=== PATIENT | male | born 1940 | race Caucasian/White ===

== ENCOUNTER → 2018-03-29 11:00 | Outpatient (CLI) | payer MEDICARE, OTHER, SELFPAY | PROVIDERS: Family Provider Family Medicine; PCP Family Medicine | DX: Z23 Encounter for immunization (principal) | CPT/HCPCS: 90471; 90662 ==

== ENCOUNTER → 2019-03-21 12:03 | Outpatient (CLI) | payer MEDICARE, OTHER, SELFPAY | PROVIDERS: PCP Family Medicine | DX: Z23 Encounter for immunization (principal) | CPT/HCPCS: 90471; 90662 ==

== ENCOUNTER → 2020-04-09 01:54 | Outpatient (CLI) | payer MEDICARE, OTHER, SELFPAY | PROVIDERS: PCP Family Medicine; Referring Provider Internal Medicine; Visit Provider Internal Medicine | DX: Z23 Encounter for immunization (principal) | CPT/HCPCS: 90471; 90662 ==

== ENCOUNTER → 2020-04-19 08:26 | Outpatient (CLI) | payer MEDICARE, OTHER, SELFPAY ==
[2020-04-20 01:36] LABS: COVID19 Sendout Not Detected (Not Detect)
== END ==
PROVIDERS: PCP Family Medicine; Visit Provider Physician Assistant
DX: Z11.59 Encounter for screening for other viral diseases (principal)
CPT/HCPCS: 87635

== ENCOUNTER 2020-04-22 11:47 | Day surgery (SDC) | payer MEDICARE, OTHER, SELFPAY ==
[2020-04-22] VITALS (9 sets, daily range): BP systolic 105–164; BP diastolic 70–88; PULSE 69–99; RESP 10–24; TEMP 36.7–37; O2SAT 94–100; BMI 26.4
--- NOTE | 2020-04-22 12:01 | PM.HP.1 ---
History of Present Illness History of Present Illness Chief complaint: [facility] [place] Narrative: 80 year old male comes in today for consideration of a screening colonoscopy. He has lost approximately 15 lb in the last 12 months, unintentional. No night sweats or fevers. Reports that his appetite is normal. He has had approximately 3 lifetime colonoscopies, last colonoscopy was clear, previous history of polyps. There have been no lower GI symptoms suggesting disease such as change in bowel habits, bleeding, abdominal pain or anemia. There's been no family history of colon cancer or colon polyps. Overall health issues have been stable, including no major cardiac events for at least 6 weeks. PCP: Dr. Mckinney Past medical history: Hyperlipidemia Lumbar disc disease, L4-L5 Spinal stenosis Elevated PSA Recurrent epistaxis Weight loss Past surgical history: None Family history: Noncontributory Social History: Alcohol drinks/day: 2 a week >5/day in last 3 mos: no Caffeine use/day: 2 Type of Exercise: walk Exercise Times per Week: daily Guns in home: no Dental Care w/in 6 mos.: no Sun Exposure: occasionally Seat Belt Use: yes Smoking Status: former smoker Year quit smokin Drug Use: never Meds Home Medications and Allergies Home Medications Medication Instructions Recorded Confirmed Type CHOLECALCIFEROL (VITAMIN D3) 400 iu PO Q DAY #0 10/22/11 04/22/20 History (Vitamin D3) FOLIC ACID/VIT A/VIT B1/VIT 1 tab PO Q DAY #0 10/22/11 04/22/20 History (#MULTI VITAMIN W/BETA CAROTENE) Fish Oil (#FISH OIL) 1 iu PO Q DAY #0 10/22/11 04/22/20 History Allergies Allergy/AdvReac Type Severity Reaction Status Date / Time No Known Drug Allergies Allergy Verified 04/22/20 12:10 Review of Systems Review of Systems ROS: Yes All systems reviewed with the patient and are negative except as otherwise documented Exam Narrative Exam Narrative: GENERAL: Alert and oriented, appearing stated age and in no acute distress. HEENT: Head normocephalic/atraumatic. Pupils equal, round, and reactive to light and accomodation. Extraocular muscles intact. Tympanic membranes clear. Nasal mucosa moist, septum midline. Oral mucosa moist, no lesions. Neck soft and supple, no lymphadenopathy. LUNGS: Clear to ausculation bilaterally, no wheezes, rhonchi or rales. CV: Normal S1 and S2 with regular rate and rhythm, no audible murmurs, rubs or gallops. ABDOMEN: Soft, non-tender, non-distended, no organomegaly. Positive bowel sounds. EXTREMITIES: No clubbing, cyanosis, or edema. NEURO: Cranial nerves II through XII grossly intact, no focal deficits. PSYCH: Alert and oriented x 3. SKIN: No concerning lesions. Assessment & Plan Assessment & Plan narrative: 1. Unintentional weight loss 2. History of colon polyps 3. Screening for colon cancer Plan for colonoscopy. The nature and character of the procedure as well as anticipated results were discussed. The possibility of not completing the procedure was also discussed. Possible complications including aspiration pneumonia, bleeding, perforation and reaction to medications either for sedation or preparation and missed lesions were discussed. Questions were answered and proceeding to the colonoscopy was elected. Informed consent signed. I sincerely appreciate the referral allowing me to participate in this patient's care. Please contact me with any questions or concerns.
--- NOTE | 2020-04-22 12:09 | PM.OP.ENDO ---
Operative Date/Time/Diagnoses Date of procedure: 04/22/20 Procedure Notes SCOAP/Timeout: 1:07 p.m. Procedure in detail: ENDOSCOPIST: Etelvina Figueredo MD Sedation RN: Tori Coombs RN Sedation start time: 1:08 p.m. Sedation end time: 1:26 p.m. PROCEDURE: Colonoscopy INDICATIONS: 1. Unintentional weight loss 2. History of colon polyps 3. Screening for colon cancer MEDICATION: Levsin 0.125 mg sublingual, incremental doses of Versed and fentanyl until appropriate level sedation achieved. ASA CLASS: 2 CECAL WITHDRAWAL TIME: 8 minutes COMPLICATIONS: None. EXTENT OF PROCEDURE: Cecum. QUALITY OF PREP: Good with portions of liquid stool. PROCEDURE: Prior to insertion of the colonoscope, a digital rectal examination was accomplished with circumferential palpation of the distal rectal mucosa without significant findings being noted. The high-definition colonoscope was passed into the rectum in the usual fashion and advanced over to the cecum without difficulty. The ileocecal valve, appendiceal stoma, and medial wall all could be inspected and no abnormalities were seen. ASCENDING COLON: As the colonoscope was withdrawn, care was taken to expose and inspect the haustral folds and no abnormalities were seen. HEPATIC FLEXURE: Normal, no polyps, diverticula or other abnormalities. TRANSVERSE COLON: Normal, no polyps, diverticula or other abnormalities. DESCENDING COLON: Moderate to severe diverticulosis, otherwise, normal, no polyps or other abnormalities. SIGMOID COLON: Moderate to severe diverticulosis, otherwise, normal, no polyps or other abnormalities. RECTUM: Normal. J maneuver was produced. There was no significant perianal disease. The J maneuver was broken. The remainder of the rectum was inspected and there was [] no external hemorrhoid disease. The scope was withdrawn. IMPRESSION: 1. Moderate to severe diverticulosis, left-sided 2. No endoscopic reason to explain weight loss PLAN: 1. Follow-up in clinic with PCP as scheduled. Secondary to patient's age, this can be his last lifetime colonoscopy. The possibility of a missed lesion including a malignancy has been discussed with the patient previously. Potential alarm symptoms have been discussed and should be reported immediately.
[2020-04-22] MEDS: LACTATED RINGERS 1,000 ML 200 ML IV (12:25)
[2020-04-22] MEDS: HYOSCYAMINE 0.125 MG TABLET PO (12:25)
[2020-04-22] MEDS: fentaNYL 250 MCG/5 ML INJ IV (13:08)
[2020-04-22] MEDS: MIDAZOLAM 5 MG/5 ML VIAL IV (13:15)
--- NOTE | 2020-04-22 13:43 | SUR.PHASEI ---
1333, DR CHILDRESS IN TO SEE PT FOR BLOODY NOSE SECONDARY TO NASAL AIRWAY, WILL APPLY ANTIBIOTIC OINTMENT TO NARE WHEN PT IS MORE AWAKE.
== END 2020-04-22 14:40 | disposition home or self-care (01) ==
PROVIDERS: PCP Family Medicine; Referring Provider Student in an Organized Health Care Education/Training Program; Visit Provider Student in an Organized Health Care Education/Training Program
PROC: 0DJD8ZZ Inspection of Lower Intestinal Tract, Via Natural or Artificial Opening Endoscopic (ICD-10-PCS; CPT 45378; principal; 2020-04-22 13:00)
DX: R63.4 Abnormal weight loss (principal); K57.30 Diverticulosis of large intestine without perforation or abscess without bleeding
CPT/HCPCS: 45378; J2250; J3010

== ENCOUNTER → 2020-08-05 14:52 | Outpatient (CLI) | payer MEDICARE, OTHER, SELFPAY ==
--- NOTE | 2020-08-05 | DI.RAD.S_ITS ---
PROCEDURE: XR KNEE LT 3V INDICATIONS: BILATERAL KNEE PAIN TECHNIQUE: 3 views of the knee were acquired. COMPARISON: None. FINDINGS: Bones: No fractures or dislocations. No suspicious bony lesions. Bilateral knee joint narrowing with periarticular osteophyte formation, severe involving the right lateral femoral tibial joint. Soft tissues: Trace left joint effusion. No suspicious soft tissue calcifications. 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 Dictated by: Maxime Bland [facility] Interpreted: Ashley Aguila MD on 08/05/2020 at 15:55 Approved by: Ashley Aguila M.D. on 08/05/2020 at 17:04
--- NOTE | 2020-08-05 | DI.RAD.S_ITS ---
PROCEDURE: XR KNEE RT 3V INDICATIONS: BILATERAL KNEE PAIN TECHNIQUE: 3 views of the knee were acquired. COMPARISON: [facility], CR, XR KNEE LT 3V, 08/05/2020, 15:04. FINDINGS: Bones: No fractures or dislocations. No suspicious bony lesions. Tibial joint. Tricompartmental knee joint degeneration bilaterally with periarticular osteophyte formation, severe involving the right lateral femoral tibial joint. Soft tissues: No joint effusion. No suspicious soft tissue calcifications. IMPRESSION: Bilateral knee joint degeneration, severe involving right lateral femoral Dictated by: Maxime Bland [facility] Interpreted: Ashley Aguila MD on 08/05/2020 at 15:56 Approved by: Ashley Aguila M.D. on 08/05/2020 at 17:04
== END ==
PROVIDERS: PCP Family Medicine; Referring Provider Family Medicine; Visit Provider Family Medicine
DX: M25.561 Pain in right knee (principal); M25.562 Pain in left knee; M17.0 Bilateral primary osteoarthritis of knee
CPT/HCPCS: 73562

== ENCOUNTER → 2020-10-24 09:45 | Outpatient (CLI) | payer MEDICARE, OTHER, SELFPAY ==
[2020-10-24] MEDS: COVID-19 VACC #1, MRNA(MOD) 100 MCG/0.5 ML VIAL IM (09:58)
== END ==
PROVIDERS: PCP Family Medicine; Visit Provider Internal Medicine
DX: Z23 Encounter for immunization (principal)
CPT/HCPCS: 0011A; 91301

== ENCOUNTER → 2020-11-29 09:44 | Outpatient (CLI) | payer MEDICARE, SELFPAY ==
[2020-11-29] MEDS: COVID-19 VACC #2, MRNA(MOD) 100 MCG/0.5 ML VIAL IM (09:52)
== END ==
PROVIDERS: PCP Family Medicine; Visit Provider Internal Medicine
DX: Z23 Encounter for immunization (principal)
CPT/HCPCS: 0012A; 91301

== ENCOUNTER → 2021-06-19 18:57 | Outpatient (ROUT) | payer MEDICARE, SELFPAY | PROVIDERS: PCP Family Medicine; Visit Provider Family Medicine | DX: R31.0 Gross hematuria (principal) | CPT/HCPCS: 87086 ==

== ENCOUNTER → 2021-06-25 14:22 | Outpatient (CLI) | payer MEDICARE, OTHER, SELFPAY ==
--- NOTE | 2021-06-25 | DI.CT.S_ITS ---
PROCEDURE: CT KIDNEY URETER BLADDER (KUB) INDICATIONS: Gross hematuria TECHNIQUE: Axial sections were acquired from the lung bases to the pubic symphysis. Coronal and sagittal reformats were performed. For radiation dose reduction, the following was used: automated exposure control, adjustment of mA and/or kV according to patient size. COMPARISON: [facility], [place], ABDOMEN COMPLETE, 04/05/2009, 7:52. FINDINGS: Image quality: Excellent. Lung bases: Unremarkable. Heart: No significant findings. URINARY: Right Kidney: No stones or hydronephrosis. Right Ureter: No hydroureter. No ureteral stone. Left Kidney: No stones or hydronephrosis. Left Ureter: No hydroureter. No ureteral stone. Bladder: Kidneys are symmetric in size and enhancement, and there is no obstructive uropathy. No perinephric inflammatory changes. Ureters are normal in course and caliber. ABDOMEN: Liver: There are numerous scattered hepatic hypodensities of variable sizes measuring between a few mm in size to approximately 3.2 cm. The largest is seen in the hepatic dome and measures simple fluid attenuation. Subcentimeter hypodensities are too small to accurately characterize but likely represent cysts versus hemangiomas. Gallbladder: Unremarkable. Biliary ducts: Unremarkable. Pancreas: Unremarkable. Spleen: Unremarkable. Adrenal Glands: Unremarkable. Stomach and Bowel: Stomach, small bowel loops, and colon are unremarkable. Scattered colonic diverticulosis without acute diverticulitis. Normal appendix. Peritoneum: No abnormal intraperitoneal fluid. No free air. Ventral Wall: No hernia. Abdominal Nodes: No enlarged retroperitoneal or mesenteric lymph nodes. Vessels: Extensive atherosclerotic calcifications of the abdominal aorta and iliac vessels without aneurysmal dilatation. PELVIS: Pelvic Organs: The prostate is enlarged. Coarse prostatic calcifications are present. Pelvic Nodes: No pelvic adenopathy. Miscellaneous: Small bilateral fat containing inguinal hernias without acute inflammation. Bones: No acute vertebral body compression fractures. Multilevel spondylitic changes throughout the imaged spine. No suspicious osseous lesions. IMPRESSION: 1. CT abdomen and pelvis without acute abnormalities. No evidence for obstructive uropathy or urolithiasis. No abnormality identified to explain patient's history of gross hematuria. 2. Prostatomegaly. 3. Aortic atherosclerosis without aneurysmal dilatation. 4. Numerous scattered hepatic hypodensities measuring less than a cm to approximately 3.2 cm in size. Largest hypodensity measures fluid attenuation. Findings are likely related to hepatic cysts or hemangiomas. Of note, comparison ultrasound of the abdomen dated April 05, 2009 only documented presence of a single posterior right hepatic lobe lesion. Recommend further characterization with contrast enhanced CT or MRI using hepatic mass protocol. 5. Colonic diverticulosis without acute diverticulitis. Dictated by: Gama Horner M.D. on 06/25/2021 at 17:12 Approved by: Gama Horner M.D. on 06/25/2021 at 17:22
== END ==
PROVIDERS: PCP Family Medicine; Referring Provider Family Medicine; Visit Provider Family Medicine
DX: R31.0 Gross hematuria (principal); I70.0 Atherosclerosis of aorta; N40.0 Benign prostatic hyperplasia without lower urinary tract symptoms; K57.90 Diverticulosis of intestine, part unspecified, without perforation or abscess without bleeding
CPT/HCPCS: 74176

== ENCOUNTER → 2021-07-04 09:49 | Outpatient (CLI) | payer MEDICARE, OTHER, SELFPAY ==
[2021-07-04 10:47] LABS: BUN Creatinine Ratio 26.4 (6-22); Blood Urea Nitrogen 24 mg/dL (9-20); Calcium 10.3 mg/dL (8.4-10.2); Carbon Dioxide 27 mmol/L (22-32); Chloride 103 mmol/L (98-107); Estimated Glomerular Filt Rate > 60.0 mL/min (>60); Glucose 80 mg/dL (80-110); HEMOLYSIS < 15 (0-50); Potassium 4.7 mmol/L (3.4-5.1); Sodium 137 mmol/L (137-145)
== END ==
PROVIDERS: PCP Family Medicine; Referring Provider Urology; Visit Provider Urology
DX: R31.0 Gross hematuria (principal); N40.0 Benign prostatic hyperplasia without lower urinary tract symptoms; R39.9 Unspecified symptoms and signs involving the genitourinary system; R31.29 Other microscopic hematuria; Z87.438 Personal history of other diseases of male genital organs; Z87.891 Personal history of nicotine dependence; Z68.29 Body mass index [BMI] 29.0-29.9, adult
CPT/HCPCS: 36415; 80048; 81002; 99214

== ENCOUNTER → 2021-07-09 12:20 | Outpatient (CLI) | payer MEDICARE, OTHER, SELFPAY ==
--- NOTE | 2021-07-09 12:21 | DI.CT.S_ITS ---
PROCEDURE: CT ABDOMEN PELVIS W CON INDICATIONS: Gross hematuria TECHNIQUE: After the administration of intravenous contrast, 5 mm thick images acquired from the diaphragm to the symphysis pubis after a 10-minute delay. 2 mm thick coronal and sagittal reformats were then performed of the kidneys and ureters. For radiation dose reduction, the following was used: automated exposure control, adjustment of mA and/or kV according to patient size. COMPARISON: [facility], CT, CT KIDNEY URETER BLADDER (KUB), 06/25/2021, 14:42. FINDINGS: Image quality: Excellent. Lung bases: Enlarged pulmonary vein in the right middle lobe, (3/8). This could represent an arterial venous shunt. Heart size is normal. Urinary system: Both kidneys are normal in size and enhancement. Small cyst at the inferior pole of the right kidney. No solid renal mass. There are a few cortical hypodensities which are too small to further characterize. Contrast-filled renal calyces are normal in morphology. The majority of the ureters are opacified. No filling defect is seen. Contrast filled portions of both ureters are normal in caliber. Bladder has a trabeculated appearance. Solid organs: Liver is normal in size. Numerous small hepatic cysts. There are a few medium-sized hepatic cysts. Gallbladder is unremarkable. Biliary system is non dilated. Pancreas enhances normally. Spleen is normal in size and enhancement. No adrenal nodules. Peritoneum and bowel: Bowel loops demonstrate normal wall thickness and caliber. Diverticulosis. There is a calcification adjacent to the left small bowel in the lower abdomen. No free fluid or air. Nodes and vessels: No retroperitoneal or mesenteric adenopathy by size criteria. Aorta and inferior vena cava are normal in size. Abdominal wall: Tiny umbilical hernia. Pelvis: No pathologic free pelvic fluid. Prostatomegaly. Suspect fat containing right inguinal hernia. No adenopathy. Bones: No suspicious bony lesions. No vertebral body compression fractures. IMPRESSION: 1. No solid renal mass. No upper urinary tract filling defect. 2. Bladder wall has a trabeculated appearance. Prostatomegaly. 3. Dilated pulmonary vein in the right middle lobe partially visualized. This could represent an arterial venous shunt or arterial venous malformation. -Recommend further evaluation with CT of the chest with IV contrast. 4. Numerous hepatic hypodensities. These are most consistent with benign cyst or biliary hamartomas. 5. Diverticulosis. Dictated by: Oscar Ball M.D. on 07/09/2021 at 13:57 Approved by: Oscar Ball M.D. on 07/09/2021 at 14:21
== END ==
PROVIDERS: PCP Family Medicine; Referring Provider Urology; Visit Provider Urology
DX: R31.0 Gross hematuria (principal); N40.0 Benign prostatic hyperplasia without lower urinary tract symptoms; K57.90 Diverticulosis of intestine, part unspecified, without perforation or abscess without bleeding
CPT/HCPCS: 74177

== ENCOUNTER → 2021-07-11 07:44 | Outpatient (CLI) | payer MEDICARE, OTHER, SELFPAY ==
[2021-07-11 08:46] LABS: Calcium 10.5 mg/dL (8.4-10.2)
[2021-07-12 08:12] LABS: Parathyroid Hormone Int 71 pg/mL (15-65)
== END ==
PROVIDERS: PCP Family Medicine; Referring Provider Urology; Visit Provider Urology
DX: N40.0 Benign prostatic hyperplasia without lower urinary tract symptoms (principal)
CPT/HCPCS: 36415; 82310; 83970

== ENCOUNTER → 2021-07-16 13:52 | Outpatient (CLI) | payer MEDICARE, OTHER, SELFPAY | PROVIDERS: PCP Family Medicine; Referring Provider Urology; Visit Provider Urology | DX: R30.0 Dysuria (principal); E21.3 Hyperparathyroidism, unspecified; E83.52 Hypercalcemia | CPT/HCPCS: 51798; 52000; 81002; 87086; 99213 ==

== ENCOUNTER → 2021-07-25 09:29 | Outpatient (CLI) | payer MEDICARE, OTHER, SELFPAY ==
--- NOTE | 2021-07-25 09:31 | DI.CT.S_ITS ---
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 1 mm axial lung, 5 mm thick coronal and sagittal reformats and 7 mm axial MIP were acquired. For radiation dose reduction, the following was used: automated exposure control, adjustment of mA and/or kV according to patient size. COMPARISON: [facility], CT, CT ABDOMEN PELVIS W CON, 07/09/2021, 13:03. FINDINGS: Image quality: Excellent. Lungs and pleura: No acute air space opacities. Mild dependent atelectasis. No pleural effusions or pneumothorax. Central and peripheral airways are patent and normal in caliber. There is an enhancing tubular structure involving the right middle lobe corresponding with finding on comparison CT. This enhancing tubular structure is a dilated segment of a distal pulmonary vein with a visible connection with a distally dilated segment of adjacent pulmonary artery. 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 Mediastinum: Heart size is normal. Mild coronary atherosclerosis. No pericardial effusion. No mediastinal or hilar adenopathy by size criteria. Thoracic aorta and central pulmonary arteries are normal in size. Atherosclerosis of the thoracic aorta. Esophagus is normal in caliber. No hiatal hernia. Bones and chest wall: No suspicious bony lesions. No vertebral body compression fractures. No axillary or supraclavicular adenopathy by size criteria. Thyroid gland is unremarkable . Abdomen: Multiple hepatic hypodensities are again noted. Visualized upper abdominal solid organs appear normal. Upper abdominal bowel loops are normal in caliber. 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 This finding correlates with previously described dilated right middle lobe pulmonary vein. No acute cardiopulmonary abnormalities. Atherosclerosis. Redemonstration of numerous hepatic hypodensities most likely representing hepatic cysts versus biliary hamartomas. Dictated by: Gama Horner M.D. on 07/25/2021 at 11:07 Approved by: Gama Horner M.D. on 07/25/2021 at 11:42
== END ==
PROVIDERS: PCP Family Medicine; Referring Provider Family Medicine; Visit Provider Family Medicine
DX: I86.8 Varicose veins of other specified sites (principal); Q26.8 Other congenital malformations of great veins; I25.10 Atherosclerotic heart disease of native coronary artery without angina pectoris; I70.0 Atherosclerosis of aorta
CPT/HCPCS: 71260

== ENCOUNTER → 2021-10-16 15:43 | Outpatient (CLI) | payer MEDICARE, OTHER, SELFPAY | PROVIDERS: PCP Family Medicine; Visit Provider Urology | DX: R30.0 Dysuria (principal); R82.81 Pyuria; R31.0 Gross hematuria; N40.0 Benign prostatic hyperplasia without lower urinary tract symptoms; R39.9 Unspecified symptoms and signs involving the genitourinary system; E21.3 Hyperparathyroidism, unspecified; Z87.891 Personal history of nicotine dependence | CPT/HCPCS: 81002; 87086; 99213 ==

== ENCOUNTER → 2022-04-14 17:28 | Outpatient (CLI) | payer MEDICARE, OTHER, SELFPAY | PROVIDERS: PCP Family Medicine; Referring Provider Internal Medicine; Visit Provider Internal Medicine | DX: Z23 Encounter for immunization (principal) | CPT/HCPCS: 90471; 90662 ==

== ENCOUNTER 2022-07-31 12:47 | Emergency (ER) | payer MEDICARE, OTHER, SELFPAY ==
[2022-07-31] VITALS (11 sets, daily range): BP systolic 148–174; BP diastolic 69–91; PULSE 72–86; RESP 14–23; TEMP 36.5; O2SAT 94–99; BMI 28.3
--- NOTE | 2022-07-31 13:12 | DI.RAD.S_ITS ---
PROCEDURE: XR CHEST 1V INDICATIONS: Possible stroke TECHNIQUE: One view of the chest was acquired. COMPARISON: None. FINDINGS: Surgical changes and devices: None. Lungs and pleura: Low lung volumes. volumes. Mild perihilar opacities. No pleural effusion. Mediastinum: Mediastinal contours appear normal. Heart size is normal. Bones and chest wall: No suspicious bony lesions. Overlying soft tissues appear unremarkable. IMPRESSION: Mild perihilar opacities could represent infection or inflammation. Consider future imaging surveillance to assess for resolution. Dictated by: Felice Eddy M.D. on 07/31/2022 at 13:45 Approved by: Felice Eddy M.D. on 07/31/2022 at 13:46
--- NOTE | 2022-07-31 13:13 | DI.CT.S_ITS ---
PROCEDURE: CT ANGIO HEAD AND NECK INDICATIONS: slurred speech, now resolved. TECHNIQUE: Pre-contrast 4.5 mm thick sections acquired from the foramen magnum to the vertex. After the administration of intravenous contrast, 1 mm thick sections acquired from the aortic arch through the [employer]. Post-contrast 4.5 mm thick sections then re-acquired from the foramen magnum to the vertex. 3-dimensional [id number] (MIP) and/or volume rendering reformats were acquired of the central intracranial vasculature and neck separately. For radiation dose reduction, the following was used: automated exposure control, adjustment of mA and/or kV according to patient size. COMPARISON: None. FINDINGS: Image quality: Excellent. BRAIN: CSF spaces: Ventricles are normal in size and shape. Basal cisterns are patent. No extra-axial fluid collections. Brain: No midline shift. No intracranial bleeds or masses. [place]-white matter interface appears intact. Skull and face: Calvarium and facial bones appear intact, without suspicious lesions. Orbits appear normal. Sinuses: Sinuses and mastoids are clear. HEAD CT ANGIOGRAPHY: Anterior circulation: Intracranial internal carotid arteries are normal in size and flow. The flow within the paired anterior cerebral arteries is normal and symmetric. The flow within the middle cerebral arteries is normal and symmetric. The anterior communicating artery is seen. No aneurysms are seen. Posterior circulation: Visualized portions of the vertebral arteries demonstrate normal caliber, and join to form a normal appearing basilar artery. Flow within the posterior cerebral arteries is normal and symmetric. No aneurysms are seen. NECK CT ANGIOGRAPHY: Carotid system: The great vessels demonstrate a conventional anatomy as they arise from the aortic arch. The origins of the common carotid arteries appear patent. The common carotid arteries demonstrate normal caliber and courses. The bifurcation regions are both widely patent. The internal carotid arteries demonstrate normal calibers and courses. Posterior circulation: The origins of the vertebral arteries both appear widely patent. The more superior extracranial portions of both vertebral arteries also demonstrate normal courses and calibers. They join to form a normal appearing basilar artery. Soft tissues: Visualized neck soft tissues demonstrate no suspicious abnormalities. Bones: No suspicious bony lesions. Visualized cervical spine appears normally aligned. 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 No new stroke or intracranial hemorrhage found. No significant stenosis involving the intracranial or cervical arterial vasculature. Any quantitative measurements of stenosis were performed using NASCET criteria. Dictated by: Clovis Kenney M.D. on 07/31/2022 at 14:09 Approved by: Clovis Kenney M.D. on 07/31/2022 at 14:14
--- NOTE | 2022-07-31 13:13 | DI.CT.S_ITS ---
PROCEDURE: CT HEAD/BRAIN WO CON INDICATIONS: slurred speech, now resolved. TECHNIQUE: Noncontrast 4.5 mm thick angled axial sections acquired from the foramen magnum to the vertex, with coronal and sagittal reformats. For radiation dose reduction, the following was used: automated exposure control, adjustment of mA and/or kV according to patient size. COMPARISON: None. FINDINGS: Image quality: Excellent. CSF spaces: Basal cisterns are patent. No extra-axial fluid collections. The ventricles are symmetric in size and shape. Brain: No intracranial bleeds or masses. There is cerebral volume loss for age, with resultant ventricular and sulcal prominence. There also is a region of subcortical white matter encephalomalacia at the left frontal region, mild to moderate in overall severity, indicating old traumatic injury or distant past stroke. There are periventricular and deep white matter chronic small vessel ischemic changes. There is intracranial internal carotid artery atherosclerosis. Skull and face: Calvarium and visualized facial bones appear intact, without suspicious lesions. Sinuses: Visualized sinuses and mastoids are clear. IMPRESSION: Left-sided encephalomalacia, subcortical white matter in the frontal region, but no evidence of acute or subacute stroke, or intracranial hemorrhage. Dictated by: Clovis Kenney M.D. on 07/31/2022 at 14:01 Approved by: Clovis Kenney M.D. on 07/31/2022 at 14:02
[2022-07-31 13:23] LABS: Add Manual Diff / Slide Review NO; Basophils Absolute Auto 0 /uL (0-100); Basophils Percent Auto 0.8 % (0-2); Eosinophils Absolute Auto 200 /uL (0-450); Eosinophils Percent Auto 3.5 % (2-4); Hematocrit 38.1 % (41-53); Hemoglobin 12.8 g/dL (13.5-17.5); Lymphocytes Absolute Auto 1800 /uL (1100-4500); Lymphocytes Percent Auto 34.9 % (25-40); Mean Corpuscular HGB Conc 33.5 % (30-36); Mean Corpuscular Hemoglobin 29.6 PG (26-34); Mean Corpuscular Volume 88.1 fL (80-100); Monocytes Absolute Auto 600 /uL (0-900); Monocytes Percent Auto 11.2 % (3-14); Neutrophils Absolute Auto 2600 /uL (1500-7000); Neutrophils Percent Auto 49.6 % (50-75); Platelet Count 275 X10^3/uL (150-400); Red Blood Cell Count 4.33 X10^6/uL (4.5-5.9); Red Cell Distribution Width 14.6 % (11.6-14.8); White Blood Cell Count 5.2 X10^3/uL (4.5-11.0)
[2022-07-31 13:41] LABS: Alanine Aminotransferase 18 IU/L (<50); Albumin 4.1 g/dL (3.5-5.0); Albumin Globulin Ratio 1.4 (1.0-2.8); Alkaline Phosphatase 57 U/L (38-126); Aspartate Aminotransferase 24 IU/L (17-59); BUN Creatinine Ratio 25.3 (6-22); Bilirubin Total 0.3 mg/dL (0.2-1.3); Blood Urea Nitrogen 22 mg/dL (9-20); Calcium 9.8 mg/dL (8.4-10.2); Carbon Dioxide 26 mmol/L (22-32); Chloride 102 mmol/L (98-107); Creatine Kinase 140 U/L (55-170); Estimated Glomerular Filt Rate > 60 mL/min (>60); Glucose 95 mg/dL (80-110); HEMOLYSIS < 15 (0-50); Magnesium 2.1 mg/dL (1.6-2.3); Potassium 4.4 mmol/L (3.4-5.1); Sodium 136 mmol/L (137-145); Total Protein 7.1 g/dL (6.3-8.2)
[2022-07-31 13:45] LABS: INR 1.1 (0.9-1.3); Prothrombin Time 12.4 SECONDS (10.1-12.7)
[2022-07-31 13:48] LABS: PTT Partial Thromboplastin Tim 30 SECONDS (26-36)
[2022-07-31 13:51] LABS: Troponin I < 0.012 ng/mL (0.01-0.034)
[2022-07-31 13:56] LABS: CKMB % Relative Index 1.5 % (1.5-5.0); Creatine Kinase MB 2.06 ng/mL (<2.37)
[2022-07-31 16:02] LABS: COVID19 -Nasal RAPID Negative (Negative)
[2022-07-31 17:19] LABS: Ur Creatinine Normal (Normal); Ur Specific Gravity Normal (Normal); Urine pH Normal (Normal)
[2022-07-31 17:20] LABS: UR Morphine/Opiate cutoff 300 Negative (Negative); Urine Amphetamines Negative (Negative); Urine Barbiturates Negative (Negative); Urine Benzodiazepines Negative (Negative); Urine Cocaine Negative (Negative); Urine MDMA Negative (Negative); Urine Methadone Negative (Negative); Urine Methamphetamines Negative (Negative); Urine Oxycodone Negative (Negative); Urine Phencyclidine Negative (Negative); Urine Tetrahydrocannabinol Negative (Negative); Urine Tricyclic Antidepressant Negative (Negative)
--- NOTE | 2022-07-31 18:01 | ED_ITS ---
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 Patient states today he had about 12nd episode where he had sort of garbled speech he knew what he wanted to say but it would not come out patient states that he was sort of gargling and was on the right side of his mouth and then resolved. He was with his who states that she saw the episode did not notice any facial droop, he has not had any persistent speech changes. No headache, no numbness, tingling or weakness. No vision changes. No chest pain, no shortness of breath, no nausea or vomiting. No vertigo. No issues with bowel movements. Patient states his only daily medication is he takes some supplements no aspirin or other blood thinners he states he is peripheral neuropathy found just below his knees bilaterally found on EMG. No prior surgeries. No known drug allergies. No tobacco, rare alcohol, no illicit. His primary care is Dr. Mckinney On Anticoagulants: No Related Data Home Medications Medication Instructions Recorded Confirmed CHOLECALCIFEROL (VITAMIN D3) 400 iu PO Q DAY ##0 10/22/11 10/16/21 (Vitamin D3) FOLIC ACID/VIT A/VIT B1/VIT 1 tab PO Q DAY ##0 10/22/11 10/16/21 (#MULTI VITAMIN W/BETA CAROTENE) Fish Oil (#FISH OIL) 1 iu PO Q DAY ##0 10/22/11 10/16/21 flaxseed oil 5 ml miscellaneous BID 07/04/21 10/16/21 meloxicam 7.5 mg tablet 7.5 mg PO DAILY 07/04/21 10/16/21 multivitamin 1 tab PO DAILY 07/04/21 10/16/21 Allergies Allergy/AdvReac Type Severity Reaction Status Date / Time No Known Drug Allergies Allergy Verified 07/31/22 13:00 Review of Systems Review of Systems ROS Unobtainable: All systems reviewed & are unremarkable except as noted in HPI and below Hematologic/Lymphatic On Anticoagulants: No Patient History Medical History Benign prostatic hyperplasia Dilation of pulmonary vein Gross hematuria Hematuria History of prostatitis History of tobacco use Lower urinary tract symptoms Microscopic hematuria Pyuria Family History Mother Coronary artery disease Hypertension Father Coronary artery disease Social History number of children: 2 household members: spouse Smoking Status: Former smoker Smoking Status: Former smoker alcohol intake frequency: a few times a week Substance Use Type: does not use Exam Narrative Exam Narrative: GEN: well nourished, well appearing male, alert and oriented x 3, patient appears to be in mild distress. HEENT: Atraumatic, pupils are equal round reactive to light, extraocular movements are intact, nares are clear, TMs are clear with no fluid, there is no conjunctival pallor. Throat is clear without any exudates, erythema, tonsillar enlargement or uvular deviation, no facial droop. HEART: Regular rate and rhythm without murmur, clicks, rubs. No carotid bruits, pulses are equal in upper and lower extremities LUNGS:Lungs clear to auscultation, no wheezes, rales, crackles, chest moves symmetrically ABD:bowel sounds normal, soft, non-tender, no guarding, rebound, rigidity, no masses noted, no hepatosplenomegaly :No CVA tenderness, [male/female exam] MSCL: Non-tender, no muscle atrophy, muscles strength 5/5 upper and lower extremities, full range of motion, normal gait NEURO:CN 2-12 intact, sensation normal, finger nose finger test normal, heel zurita test normal, romberg normal, no droop. SKIN: No rash erythema or other skin changes Initial Vital Signs Initial Vital Signs: Vital Signs Temperature 97.7 F 07/31/22 13:00 Pulse Rate 86 07/31/22 13:00 Respiratory Rate 17 07/31/22 13:00 Blood Pressure 174/91 H 07/31/22 13:00 Pulse Oximetry 97 07/31/22 13:00 Oxygen Delivery Method 07/31/22 13:00 Scores NIH Stroke Scale Level of Conciousness: Alert, keenly responsive Ask month/age: Answers both questions correctly. Open/close eyes, close hand: Performs both tasks correctly Best gaze horizontal: Normal Visual chávez: No visual loss Facial palsy: Normal symetrical movement Left arm drift: No drift for full 10 sec Right arm drift: No drift for full 10 sec Left leg drift: No drift for full 5 sec Right leg drift: No drift for full 5 sec Limb ataxia: Absent Sensory on face/arms/legs: Normal, no sensory loss Best language: No aphasia, normal Dysarthria: Normal Extinction or inattention: No abnormality Total NIH Stroke scale score: 0 Course Orders Ordered: ED Orders 07/31/22 13:10 Complete Blood Count AUTO DIFF Stat Comprehensive Metabolic Panel Stat Magnesium Stat Partial Thromboplastin Time Stat Prothrombin Time INR Stat Troponin & CK Cardiac Panel Stat 07/31/22 13:12 XR chest 1V Stat 07/31/22 13:13 CT angio head and neck Stat CT head/brain wo con Stat 07/31/22 13:20 EKG-12 Lead Stat 07/31/22 15:33 COVID19 -Nasal RAPID/Pre-Proc Stat 07/31/22 17:01 Urine Drug Screen, Rapid Stat Ondansetron HCl (Ondansetron 4 Mg/2 Ml Inj) 4 mg IV NOW PRN PRN Reason: Nausea And Vomiting Vital Signs Vital signs: Vital Signs - 8 hr 07/31/22 13:00 07/31/22 15:21 07/31/22 15:21 Temperature 97.7 F Pulse Rate 86 78 Respiratory Rate 17 23 Blood Pressure 174/91 H 173/79 H Pulse Oximetry 97 98 Oxygen Delivery Method Room Air 07/31/22 15:30 07/31/22 15:30 07/31/22 15:40 Temperature Pulse Rate 79 Respiratory Rate Blood Pressure 156/69 H 153/72 H Pulse Oximetry 95 Oxygen Delivery Method 07/31/22 15:40 07/31/22 15:50 07/31/22 15:50 Temperature Pulse Rate 82 80 Respiratory Rate 21 19 Blood Pressure 152/74 H Pulse Oximetry 95 95 Oxygen Delivery Method 07/31/22 16:00 07/31/22 16:00 07/31/22 16:10 Temperature Pulse Rate 81 78 Respiratory Rate 20 Blood Pressure 154/72 H Pulse Oximetry 95 95 Oxygen Delivery Method 07/31/22 16:10 07/31/22 16:20 07/31/22 16:20 Temperature Pulse Rate 75 Respiratory Rate 21 Blood Pressure 151/73 H 150/73 H Pulse Oximetry 95 Oxygen Delivery Method MDM - Neuro Symptoms/Deficit Lab Data 07/31/22 13:10 07/31/22 13:10 Labs: Lab Results 07/31/22 07/31/22 07/31/22 Range/Units 13:10 13:10 13:10 WBC 5.2 (4.5-11.0) X10^3/uL RBC 4.33 L (4.5-5.9) X10^6/uL Hgb 12.8 L (13.5-17.5) g/dL Hct 38.1 L (41-53) % MCV 88.1 (80-100) fL MCH 29.6 (26-34) PG MCHC 33.5 (30-36) % RDW 14.6 (11.6-14.8) % Plt Count 275 (150-400) X10^3/uL Neut % (Auto) 49.6 L (50-75) % Lymph % (Auto) 34.9 (25-40) % [place] % (Auto) 11.2 (3-14) % Eos % (Auto) 3.5 (2-4) % Baso % (Auto) 0.8 (0-2) % Neut # (Auto) 2600 (1560-5637) /uL Lymph # (Auto) 1800 (0275-8029) /uL [place] # (Auto) 600 (0-900) /uL Eos # (Auto) 200 (0-450) /uL Baso # (Auto) 0 (0-100) /uL PT 12.4 (10.1-12.7) SECONDS INR 1.1 (0.9-1.3) APTT 30 (26-36) SECONDS Sodium 136 L (137-145) mmol/L Potassium 4.4 (3.4-5.1) mmol/L Chloride 102 (98-107) mmol/L Carbon Dioxide 26 (22-32) mmol/L BUN 22 H (9-20) mg/dL Creatinine 0.87 (0.66-1.25) mg/dL Estimated GFR > 60 (>60) mL/min BUN/Creatinine Ratio 25.3 H (6-22) Glucose 95 (80-110) mg/dL Calcium 9.8 (8.4-10.2) mg/dL Magnesium 2.1 (1.6-2.3) mg/dL Total Bilirubin 0.3 (0.2-1.3) mg/dL AST 24 (17-59) IU/L ALT 18 (<50) IU/L Alkaline Phosphatase 57 (38-126) U/L Total Creatine Kinase 140 (55-170) U/L CK-MB (CK-2) 2.06 (<2.37) ng/mL CK-MB (CK-2) Rel Index 1.5 (1.5-5.0) % Troponin I < 0.012 (0.01-0.034) ng/mL Total Protein 7.1 (6.3-8.2) g/dL Albumin 4.1 (3.5-5.0) g/dL Globulin 3.0 (1.7-4.1) g/dL Albumin/Globulin Ratio 1.4 (1.0-2.8) U Opiates 300ng/mL cut (Negative) Ur Oxycodone Screen (Negative) Urine Methadone Screen (Negative) Ur Barbiturates Screen (Negative) U Tricyclic Antidepress (Negative) Ur Phencyclidine Scrn (Negative) Ur Amphetamines Screen (Negative) U Methamphetamines Scrn (Negative) Ur MDMA Scrn (Ecstasy) (Negative) U Benzodiazepines Scrn (Negative) Urine Cocaine Screen (Negative) U Marijuana (THC) Screen (Negative) SARS-CoV-2 (PCR) (Negative) 07/31/22 07/31/22 Range/Units 15:33 17:01 WBC (4.5-11.0) X10^3/uL RBC (4.5-5.9) X10^6/uL Hgb (13.5-17.5) g/dL Hct (41-53) % MCV (80-100) fL MCH (26-34) PG MCHC (30-36) % RDW (11.6-14.8) % Plt Count (150-400) X10^3/uL Neut % (Auto) (50-75) % Lymph % (Auto) (25-40) % [place] % (Auto) (3-14) % Eos % (Auto) (2-4) % Baso % (Auto) (0-2) % Neut # (Auto) (5305-7688) /uL Lymph # (Auto) (1695-4222) /uL [place] # (Auto) (0-900) /uL Eos # (Auto) (0-450) /uL Baso # (Auto) (0-100) /uL PT (10.1-12.7) SECONDS INR (0.9-1.3) APTT (26-36) SECONDS Sodium (137-145) mmol/L Potassium (3.4-5.1) mmol/L Chloride (98-107) mmol/L Carbon Dioxide (22-32) mmol/L BUN (9-20) mg/dL Creatinine (0.66-1.25) mg/dL Estimated GFR (>60) mL/min BUN/Creatinine Ratio (6-22) Glucose (80-110) mg/dL Calcium (8.4-10.2) mg/dL Magnesium (1.6-2.3) mg/dL Total Bilirubin (0.2-1.3) mg/dL AST (17-59) IU/L ALT (<50) IU/L Alkaline Phosphatase (38-126) U/L Total Creatine Kinase (55-170) U/L CK-MB (CK-2) (<2.37) ng/mL CK-MB (CK-2) Rel Index (1.5-5.0) % Troponin I (0.01-0.034) ng/mL Total Protein (6.3-8.2) g/dL Albumin (3.5-5.0) g/dL Globulin (1.7-4.1) g/dL Albumin/Globulin Ratio (1.0-2.8) U Opiates 300ng/mL cut Negative (Negative) Ur Oxycodone Screen Negative (Negative) Urine Methadone Screen Negative (Negative) Ur Barbiturates Screen Negative (Negative) U Tricyclic Antidepress Negative (Negative) Ur Phencyclidine Scrn Negative (Negative) Ur Amphetamines Screen Negative (Negative) U Methamphetamines Scrn Negative (Negative) Ur MDMA Scrn (Ecstasy) Negative (Negative) U Benzodiazepines Scrn Negative (Negative) Urine Cocaine Screen Negative (Negative) U Marijuana (THC) Screen Negative (Negative) SARS-CoV-2 (PCR) Negative (Negative) Point of Care Testing Glucose POC 92 Urine Dip Bedside Urine Glucose Negative Bedside Urine Bilirubin - Negative Bedside Urine Ketone - Negative Urine Specific [place] 1.015 Bedside Urine Occult Blood - Negative Bedside Urine pH 6.5 Bedside Urine Protein - Negative Bedside Urine Urobilinogen - Negative Bedside Urine Nitrite - Negative Bedside Urine Leukocytes - Negative Esterase Imaging Data CTA - brain/neck: Radiologist's Impression: Close Head/Neck CTA (Signed) Clovis Kenney - 07/31/[address] (Signed) Clovis Kenney - 07/31/22 Chest X-Ray (Signed) Felice Eddy - 07/31/[address] (Signed) Gama Horner - 07/25/21 Abdomen/Pelvis CT (Signed) Buddy Balln - 07/09/21 Abdomen/Pelvis CT (Addendum) HornerGama - 06/25/21 Knee X-Ray (Signed) Ashley Aguila - 08/05/20 Knee X-Ray (Signed) Ashley Aguila - 08/05/20 Telemetry Strips 04/22/20 Launch?[place] [address] CT Scan Report Signed Patient: Topher Camarillo MR#: [id number] : 1940 Acct:[id number] Age/Sex: 82 / M Date of Service: 07/31/22 Loc: ED Accession Number: [id number] ?? Procedure: CT angio head and neck Ordering Provider: Sana Olson D.O. PROCEDURE:? CT ANGIO HEAD AND NECK ? INDICATIONS:? slurred speech, now resolved. ? TECHNIQUE:? Pre-contrast 4.5 mm thick sections acquired from the foramen magnum to the vertex.? After the administration of intravenous contrast, 1 mm thick sections acquired from the aortic arch through the [place].? Post-contrast 4.5 mm thick sections then re- acquired from the foramen magnum to the vertex.? 3-dimensional gcpkkrq-lnmmpwroh-beefzctwsg (MIP) and/or volume rendering reformats were acquired of the central intracranial vasculature and neck separately. For radiation dose reduction, the following was used:? a utomated exposure control, adjustment of mA and/or kV according to patient size.? ? COMPARISON:? None. ? FINDINGS:? Image quality:? Excellent.? ? BRAIN:? CSF spaces:? Ventricles are normal in size and shape.? Basal cisterns are patent.? No extra-axial fluid collections.? ? Brain:? No midline shift.? No intracranial bleeds or masses.? Gamez-white matter interface appears intact.? ? Skull and face:? Calvarium and facial bones appear intact, without suspicious lesions.? Orbits appear normal.? ? Sinuses:? Sinuses and mastoids are clear.? ? HEAD CT ANGIOGRAPHY:? Anterior circulation:? Intracranial internal carotid arteries are normal in size and flow.? The flow within the paired anterior cerebral arteries is normal and symmetric.? The flow within the middle cerebral arteries is normal and symmetric.? The anterior communicating artery is seen.? No aneurysms are seen.? ? Posterior circulation:? Visualized portions of the vertebral arteries demonstrate normal caliber, and join to form a normal appearing basilar artery.? Flow within the posterior cerebral arteries is normal and symmetric.? No aneurysms are seen.? ? NECK CT ANGIOGRAPHY:? Carotid system:? The great vessels demonstrate a conventional anatomy as they arise from the aortic arch.? The origins of the common carotid arteries appear patent.? The common carotid arteries demonstrate normal caliber and courses.? The bifurcation shannan ons are both widely patent.? The internal carotid arteries demonstrate normal calibers and courses.? ? Posterior circulation:? The origins of the vertebral arteries both appear widely patent.? The more superior extracranial portions of both vertebral arteries also demonstrate normal courses and calibers.? They join to form a normal appearing basilar artery.? ? Soft tissues:? Visualized neck soft tissues demonstrate no suspicious abnormalities.? ? Bones:? No suspicious bony lesions.? Visualized cervical spine appears normally aligned.? IMPRESSION:? 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 No new stroke or intracranial hemor rhage found. ?No significant stenosis involving the intracranial or cervical arterial vasculature. ? Any quantitative measurements of stenosis were performed using NASCET criteria.? ? ? Dictated by: Clovis Kenney M.D. on 07/31/2022 at 14:09 ? ? Approved by: Clovis Kenney M.D. on 07/31/2022 at 14:14?? CT scan - head: Radiologist's Impression: Topher Camarillo??82??M??1940 ? Allergy/Adv: No Known Drug Allergies Close Head/Neck CTA (Signed) Clovis Kenney - 07/31/[address] (Signed) Clovis Kenney - 07/31/22 Chest X-Ray (Signed) Felice Eddy - 07/31/[address] (Signed) Gama Horner - 07/25/21 Abdomen/Pelvis CT (Signed) Oscar Ball - 07/09/21 Abdomen/Pelvis CT (Addendum) Gama Horner - 06/25/21 Knee X-Ray (Signed) Aguila,Ashley - 08/05/20 Knee X-Ray (Signed) AguilaAshley - 08/05/20 Telemetry Strips 04/22/20 Launch?[address] [address] [address] Scan Report Signed Patient: Topher Camarillo MR#: [id number] : 1940 Acct:[id number] Age/Sex: 82 / M Date of Service: 07/31/22 Loc: ED Accession Number: [id number] ?? Procedure: CT head/brain wo con Ordering Provider: Sana Olson D.O. PROCEDURE:? CT HEAD/BRAIN WO CON ? INDICATIONS:? slurred speech, now resolved. ? TECHNIQUE:? Noncontrast 4.5 mm thick angled axial sections acquired from the foramen magnum to the vertex, with coronal and sagittal reformats.? For radiation dose reduction, the following was used:? automated exposure control, adjustment of mA and/or kV according to patient size.? ? COMPARISON:? None. ? FINDINGS:? Image quality:? Excellent.? ? CSF spaces:? Basal cisterns are patent.? No extra-axial fluid collections.? The ventricles are symmetric in size and shape.? ? Brain:? No intracranial bleeds or masses.? There is cerebral volume loss for age, with resultant ventricular and sulcal prominence.? There also is a region of subcortical white matter encephalomalacia at the left frontal region, mild to moderate in overall severity, indicating old traumatic injury or distant past stroke.? There are periventricular and deep white matter chronic small vessel ischemic changes.? There is intracranial internal carotid artery atherosclerosis.? ? Skull and face:? Calvarium and visualized facial bones appear intact, without suspicious lesions.? ? Sinuses:? Visualized sinuses and mastoids are clear.? ? IMPRESSION:? Left-sided encephalomalacia, subcortical white matter in the frontal region, but no evidence of acute or subacute stroke, or intracranial hemorrhage. ? ? Dictated by: Clvois Kenney M.D. on 07/31/2022 at 14:01 ? ? Approved by: Clovis Kenney M.D. on 07/31/2022 at 14:02?? Chest x-ray: Radiologist's Impression: [address] [address] XRay Report Signed Patient: Topher Camarillo MR#: [id number] : 1940 Acct:[id number] Age/Sex: 82 / M Date of Service: 07/31/22 Loc: ED Accession Number: [id number] ?? Procedure: XR chest 1V Ordering Provider: Sana Olson D.O. PROCEDURE:? XR CHEST 1V ? INDICATIONS:? Possible stroke ? TECHNIQUE:? One view of the chest was acquired.? ? COMPARISON:? None. ? FINDINGS:? ? Surgical changes and devices:? None.? ? Lungs and pleura:? Low lung volumes.? volumes.? Mild perihilar opacities.? No pleural effusion. ? Mediastinum:? Mediastinal contours appear normal.? Heart size is normal.? ? Bones and chest wall:? No suspicious bony lesions.? Overlying soft tissues appear unremarkable.? ? IMPRESSION:? Mild perihilar opacities could represent infection or inflammation.? Consider future imaging surveillance to assess for resolution. ? ? ? Dictated by: Felice Eddy M.D. on 07/31/2022 at 13:45 ? ? Approved by: Felice Eddy M.D. on 07/31/2022 at 13:46?? ECG Data Attestation: I personally reviewed and interpreted this ECG as follows: Interpretation: Sinus rhythm rate 85 FL 138 QRS of 90 QTC 435. Q-wave, inverted T-waves in 3 and AVF, no ST elevation MDM Narrative Medical decision making narrative: An 82-year-old male who presents with garbled speech and dysarthria/expressive aphasia for he describes 10 seconds which has resolved he has not NIH of [address] and CTA showed old left frontal subcortical white matter change with encephalomalacia noted on prior imaging that they have available, I do not have access to his prior head CT. Patient is not a tPA candidate with a negative NIH, normal gait no other changes. There is some mild perihilar moffett ges chest x-ray point of care urine is negative, CBC, CMP, coags, troponin, LFTs are negative, U tox and COVID are negative. Discussed with patient offered observation for TIA stroke or he defers and would like to return home we discussed starting an aspirin daily but he takes meloxicam and rightly noted that it would increase his bleeding risk. Patient does not want to stop his meloxicam he has not tried other medications for his chronic osteoarthritis in the past and prefers to talk it over with Dr. Mckinney. I did talk to Dr. Trinidad who is on-call for Dr. Mckinney to help facilitate follow-up. Discharge Plan Departure Patient Disposition: Home Clinical Impression: TIA (transient ischemic attack) Instructions: DI for Transient Ischemic Attack Activity Restrictions/Additional Instructions: Please follow-up with Dr. Mckinney or one of his partners for possible TIA or mini stroke. Talk with Dr. Mckinney about whether to stop your meloxicam and start aspirin or alternatives for pain management Your CT today does show changes to the brain that are old. Please return for new or worsening symptoms, severe headaches altered mental status, new speech changes, new weakness, numbness tingling, difficulty walking, vertigo or dizziness or other new or concerning changes. Prescriptions: No Action FOLIC ACID/VIT A/VIT B1/VIT (#MULTI VITAMIN W/BETA CAROTENE) 1 tab PO Q DAY Qty: 0 CHOLECALCIFEROL (VITAMIN D3) (Vitamin D3) 400 iu PO Q DAY Qty: 0 Fish Oil (#FISH OIL) 1 iu PO Q DAY Qty: 0 meloxicam 7.5 mg tablet 7.5 mg PO DAILY flaxseed oil Oil 5 ml miscellaneous BID multivitamin Tablet 1 tab PO DAILY Referrals: Alvin Mckinney MD [Primary Care Provider] - Stand Alone Forms: Patient Portal/API
== END 2022-07-31 18:34 | disposition home or self-care (01) ==
PROVIDERS: Emergency Provider Emergency Medicine; PCP Family Medicine
DX: G45.9 Transient cerebral ischemic attack, unspecified (principal); R79.89 Other specified abnormal findings of blood chemistry; Z20.822 Contact with and (suspected) exposure to COVID-19
CPT/HCPCS: 36415; 70450; 70496; 70498; 71045; 80053; 80305; 81003; 82550; 82553; 82962; 83735; 84484; 85025; 85610; 85730; 87635; 93005; 99285; C9803; Q9967

== ENCOUNTER → 2022-08-14 15:32 | Outpatient (CLI) | payer MEDICARE, OTHER, SELFPAY ==
--- NOTE | 2022-08-14 15:33 | DI.MRI.S_ITS ---
PROCEDURE: MR HEAD/BRAIN WO/W CON INDICATIONS: Transient cerebral ischemic attack, unspecified TECHNIQUE: Noncontrast axial T1 spin echo, axial T2 fast spin echo, sagittal and axial FLAIR, coronal T2 fast spin echo, axial gradient echo, axial diffusion and ADC through the brain. After the administration of contrast, axial and coronal and sagittal 3D VIBE or T1 spin echo with fat saturation through the brain. COMPARISON: None. FINDINGS: Image quality: Excellent. CSF Spaces: Basal cisterns are patent. No extra-axial fluid collections. Ventricles are normal in size and shape. Brain: No intracranial masses or hemorrhage. [place]/white matter interface is normal. Brainstem appears normal. Diffusion-weighted sequence is unremarkable without evidence of acute infarct. Normal intravascular flow voids are present. 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 Skull and face: Calvarial marrow is normal in signal. Orbits appear normal. Sinuses: Sinuses and mastoids appear clear. IMPRESSION: Old left frontal infarct. Mild atrophy and chronic ischemic change without acute infarct or mass lesion Approved by: Anton Anglin M.D. on 08/14/2022 at 17:46
== END ==
PROVIDERS: PCP Family Medicine; Referring Provider Family Medicine; Visit Provider Family Medicine
DX: G45.9 Transient cerebral ischemic attack, unspecified (principal)
CPT/HCPCS: 70553; A9579

== ENCOUNTER → 2022-08-21 11:54 | Outpatient (CLI) | payer MEDICARE, OTHER, SELFPAY ==
--- NOTE | 2022-08-21 | DI.ECHO.S_ITS ---
[facility] +---------+ : : [address] : : : [place] : : : : [id number] : : : : Phone: [phone] +---------+ Echocardiogram Report + + :Name: ELLIE WAHL Study Date: 08/21/2022 Height: 73 in : :[facility] ReadingLocation: Weight: 215 lb : : Gender: Male BSA: 2.2 m2 : :: 1940 Age: 82 yrs BP: 162/84 mmHg: :Reason For Study: TIA : :Ordering Physician: ELIEL, : :MODESTO Performed By: Debbi Blevins : :Referring: MODESTO JULIAN : + + Interpretation Summary The ejection fraction is estimated to be 60-65%. Grade I diastolic dysfunciton The right ventricle is normal in size and function. There is no Doppler evidence for an interatrial shunt. No significant valvular abnormality. Procedure: A two-dimensional transthoracic echocardiogram with color flow and Doppler was performed. The study quality was technically adequate. The patient was in sinus rhythm with heart rates between 73-80 bpm during the exam. Left Ventricle: The left ventricle is normal in size. There is mild asymmetric left ventricular hypertrophy. The ejection fraction is estimated to be 60-65%. Grade I diastolic dysfunciton. Right Ventricle: The right ventricle is normal in size and function. Atria: The left atrium is mildly dilated. The right atrium is normal in size. The atrial septum is aneurysmal. There is no Doppler evidence for an interatrial shunt. Mitral Valve: The mitral valve is normal in structure and function. There is mild mitral regurgitation. Aortic Valve: The aortic valve is trileaflet. The aortic valve opens well. The aortic valve is slightly calcified. There is no hemodynamically significant valvular aortic stenosis. There is trace aortic regurgitation. Tricuspid Valve: The tricuspid valve is normal in structure and function. There is mild tricuspid regurgitation. Pulmonic Valve: The pulmonic valve leaflets are thin and pliable; valve motion is normal. There is a trace or physiologic amount of pulmonic regurgitation. Great Vessels: The aortic root is normal size. The ascending aorta is normal in size. Pericardium/ Pleura There is no pericardial effusion. There is no pleural effusion. MMode/2D Measurements & Calculations LVIDd: 4.0 cm LVOT diam: 2.3 cm LVIDs: 2.9 cm Ao root diam: 3.6 cm FS: 25.6 % asc Aorta Diam: 3.3 cm EPSS: 0.29 cm IVSd: 0.99 cm LVPWd: 1.2 cm LV love. diameter/BSA (cm/m^2): 1.8 LV sys. diameter/BSA (cm/m^2): 1.3 LA A2 area: 23.6 cm2 RA long axis: 5.1 cm LA A4 area: 25.2 cm2 RA area: 17.5 cm2 LA length (vol): 6.3 cm RA vol: 51.1 ml LA vol: 80.4 ml RA : 23.0 ml/m2 LA vol index: 36.2 ml/m2 IVC diam: 1.8 cm RVD1 (basal): 3.8 cm TAPSE: 2.7 cm Doppler Measurements & Calculations Ao V2 max: 121.5 cm/sec LVOT Max Allan: 117.5 cm/sec Ao V2 mean: 82.9 cm/sec LV V1 max P.5 mmHg Ao max P.9 mmHg LV V1 VTI: 24.3 cm Ao mean P.1 mmHg JOSE(I,D): 4.0 cm2 Ao V2 VTI: 25.6 cm JOSE(V,D): 4.0 cm2 sev ratio: 0.95 JOSE indexed to BSA (cm^2/m^2): 1.8 MV E max allan: 62.6 cm/sec TR max allan: 220.5 cm/sec MV A max allan: 78.0 cm/sec TR max P.5 mmHg MV E/A: 0.80 PA V2 max: 87.5 cm/sec Med Peak E' Allan: 6.4 cm/sec PA V2 mean: 66.8 cm/sec E/E' med: 9.8 PA mean P.9 mmHg Lat Peak E' Allan: 8.5 cm/sec E/E' lat: 7.3 E/e' average: 8.6 MV dec time: 0.34 sec MVA(VTI): 4.3 cm2 MV V2 mean: 62.6 cm/sec SV(LVOT): 101.8 ml MV mean P.7 mmHg MV V2 VTI: 23.8 cm Reading Physician:ELKIN
== END ==
PROVIDERS: PCP Family Medicine; Referring Provider Family Medicine; Visit Provider Family Medicine
DX: G45.9 Transient cerebral ischemic attack, unspecified (principal); I08.1 Rheumatic disorders of both mitral and tricuspid valves
CPT/HCPCS: 93306

== ENCOUNTER → 2022-08-27 09:27 | Outpatient (CLI) | payer MEDICARE, OTHER, SELFPAY | PROVIDERS: PCP Family Medicine; Referring Provider Family Medicine; Visit Provider Family Medicine | DX: G45.9 Transient cerebral ischemic attack, unspecified (principal); R55 Syncope and collapse | CPT/HCPCS: 93246 ==

== ENCOUNTER → 2024-01-05 07:35 | Outpatient (CLI) | payer MEDICARE, OTHER, SELFPAY ==
[2024-01-05 08:21] LABS: Add Manual Diff / Slide Review NO; Basophils Absolute Auto 100 /uL (0-100); Basophils Percent Auto 1.1 % (0-2); Eosinophils Absolute Auto 200 /uL (0-450); Eosinophils Percent Auto 4.3 % (2-4); Hematocrit 33.9 % (41-53); Hemoglobin 10.6 g/dL (13.5-17.5); Lymphocytes Absolute Auto 1700 /uL (1100-4500); Lymphocytes Percent Auto 34.4 % (25-40); Mean Corpuscular HGB Conc 31.3 % (30-36); Mean Corpuscular Hemoglobin 23.2 PG (26-34); Mean Corpuscular Volume 74.2 fL (80-100); Monocytes Absolute Auto 500 /uL (0-900); Neutrophils Absolute Auto 2400 /uL (1500-7000); Neutrophils Percent Auto 49.2 % (50-75); Platelet Count 413 X10^3/uL (150-400); Red Blood Cell Count 4.57 X10^6/uL (4.5-5.9)
[2024-01-05 08:43] LABS: Alanine Aminotransferase 14 IU/L (<50); Albumin 4.3 g/dL (3.5-5.0); Albumin Globulin Ratio 1.6 (1.0-2.8); Alkaline Phosphatase 58 U/L (38-126); Aspartate Aminotransferase 23 IU/L (17-59); BUN Creatinine Ratio 20.9 (6-22); Bilirubin Total 0.5 mg/dL (0.2-1.3); Blood Urea Nitrogen 18 mg/dL (9-20); Calcium 10.1 mg/dL (8.4-10.2); Carbon Dioxide 24 mmol/L (22-32); Chloride 110 mmol/L (98-107); Cholesterol 187 mg/dL (140-199); Estimated Glomerular Filt Rate > 60 mL/min (>60); Globulin 2.7 g/dL (1.7-4.1); Glucose 93 mg/dL (80-110); HDL Cholesterol 38 mg/dL (40-60); HEMOLYSIS < 15 (0-50); Hemoglobin A1C% w Est Avg Glu 5.4 % (4.0-6.0); LDL Cholesterol Calculated 122 mg/dL (<100); Potassium 4.8 mmol/L (3.4-5.1); Sodium 139 mmol/L (137-145); Triglycerides 135 mg/dL (35-150)
[2024-01-05 08:46] LABS: HEMOLYSIS < 15 (0-50); Iron 28 ug/dL (49-181)
[2024-01-05 08:56] LABS: Percent Iron Saturation 7 % (20-50); Total Iron Binding Capacity 392 ug/dL (261-462)
[2024-01-05 09:05] LABS: Free T4, Direct Thyroxine 0.86 ng/dL (0.78-2.19)
[2024-01-05 09:09] LABS: Prostate Specific Antigen 2.93 ng/mL (0.10-4.00)
[2024-01-05 09:18] LABS: Thyroid Stimulating Hormone 1.59 uIU/mL (0.47-4.68)
[2024-01-06 08:03] LABS: Transferrin 283 mg/dL (206-381)
== END ==
PROVIDERS: PCP Family Medicine; Referring Provider Family Medicine; Visit Provider Family Medicine
DX: Z00.00 Encounter for general adult medical examination without abnormal findings (principal); R97.20 Elevated prostate specific antigen [PSA]; E61.1 Iron deficiency
CPT/HCPCS: 36415; 80053; 80061; 83036; 83540; 83550; 84153; 84439; 84443; 85025